=== PATIENT | male | born 1945 | race Caucasian/White ===

== ENCOUNTER 2021-04-25 22:15 | Emergency (ER) | payer MEDICARE, OTHER ==
[2021-04-25] MEDS ORDERED: methylPREDNISolone Sodium Succinate 125 MG/2 ML SDV IM ONE (22:40)
--- NOTE | 2021-04-25 22:57 | EDM.PDOC ---
ED HPI GENERAL MEDICAL PROBLEM - General Chief Complaint: Allergic Reaction Stated Complaint: BEE STING Time Seen by Provider: 04/25/21 22:36 Source of Information: Reports: Patient History Limitations: Reports: No Limitations - History of Present Illness INITIAL COMMENTS - FREE TEXT/NARRATIVE: Thong is a 75-year-old male presenting to the ED for evaluation of a bee sting to his right lateral wrist. The patient was stung about 2 hours ago. He has a history of bee sting allergies so he administered his EpiPen. He did take diphenhydramine 50 mg by mouth after the swelling started to get worse. He does state that he feels a little short of breath but denies any difficulty with swallowing. He initially was not going to come in but then he read on his EpiPen that once it is used he should seek medical attention. Does sound like what occurred as he was stung by a yellow jacket while he was taking garbage out to the garbage can this evening. Right Middle Arm Pain Score (Numeric/FACES): 4 - Related Data Allergies Allergy/AdvReac Type Severity Reaction Status Date / Time bee venom protein (honey bee) Allergy Anaphylactic Verified 04/25/21 22:32 Shock Home Meds: Home Meds EPINEPHrine [Epipen] 0.3 mg IM ASDIRECTED PRN #1 pen 04/25/21 [Rx] EPINEPHrine [Epipen] 1 dose IM ASDIRECTED 04/25/21 [History] Omeprazole 20 mg PO DAILY 04/25/21 [History] Pravastatin [Pravachol] 20 mg PO DAILY 04/25/21 [History] lisinopriL [Lisinopril] 20 mg PO DAILY 04/25/21 [History] Past Medical History HEENT History: Reports: Impaired Vision Cardiovascular History: Reports: High Cholesterol, Hypertension Gastrointestinal History: Reports: GERD Musculoskeletal History: Reports: Arthritis - Infectious Disease History Infectious Disease History: Reports: Chicken Pox, Measles, Mumps - Past Surgical History GI Surgical History: Reports: Colonoscopy, Polypectomy Social & Family History - Tobacco Use Tobacco Use Status *Q: Never Tobacco User - Caffeine Use Caffeine Use: Reports: Coffee - Alcohol Use Days Per Week of Alcohol Use: 7 Number of Drinks Per Day: 2 Total Drinks Per Week: 14 - Recreational Drug Use Recreational Drug Use: No ED ROS ALLERGIC REACTION - Review of Systems Review Of Systems: See Below Constitutional: Reports: No Symptoms HEENT: Reports: No Symptoms Respiratory: Reports: Shortness of Breath (Mild) Cardiovascular: Reports: No Symptoms Endocrine: Reports: No Symptoms GI/Abdominal: Reports: No Symptoms : Reports: No Symptoms Musculoskeletal: Reports: No Symptoms Skin: Reports: Erythema (Swelling and erythema on the lateral right wrist extending up about nursing home on the forearm) Neurological: Reports: No Symptoms. Denies: Numbness, Paresthesia, Tingling, Weakness Psychiatric: Reports: No Symptoms Hematologic/Lymphatic: Reports: No Symptoms Immunologic: Reports: No Symptoms ED EXAM GENERAL NO PERIP PULSE - Physical Exam Exam: See Below Exam Limited By: No Limitations General Appearance: Alert, No Apparent Distress, Anxious Eye Exam: Bilateral Eye: EOMI, PERRL Throat/Mouth: Normal Inspection, Normal Oropharynx, Normal Voice, No Airway Compromise Head: Atraumatic, Normocephalic Neck: Normal Inspection, Supple Respiratory/Chest: No Respiratory Distress, Lungs Clear, Normal Breath Sounds, No Accessory Muscle Use Cardiovascular: Normal Peripheral Pulses, Regular Rate, Rhythm, No Murmur Extremities: Normal Range of Motion, Normal Capillary Refill Neurological: Alert, Oriented, Normal Cognition, No Motor/Sensory Deficits Skin Exam: Erythema (Redness and swelling on the lateral right wrist extending about nursing home up the forearm.) Lymphatic: No Adenopathy Course - Vital Signs Last Recorded V/S: Last Vital Signs Temp 36.1 C 04/25/21 22:38 Pulse 93 04/25/21 22:38 Resp 16 04/25/21 22:38 BP 158/85 H 04/25/21 22:38 Pulse Ox 97 04/25/21 22:38 - Orders/Labs/Meds Meds: Medications Discontinued Medications Generic Name Dose Route Start Last Admin Trade Name Freq PRN Reason Stop Dose Admin Methylprednisolone Sodium Succinate 125 mg 04/25/21 22:40 04/25/21 22:47 Methylprednisolone Sodium Succinate 125 Mg/2 Ml Sdv IM 04/25/21 22:41 125 mg ONETIME ONE Administration Departure - Departure Time of Disposition: 23:11 Disposition: Home, Self-Care 01 Clinical Impression: Bee sting reaction Qualifiers: Encounter type: initial encounter Injury intent: accidental or unintentional Qualified Code(s): T63.441A - Toxic effect of venom of bees, accidental (unintentional), initial encounter - Discharge Information Instructions: Bee, Wasp, or Hornet Sting, Adult Referrals: PCP,None [Primary Care Provider] - Forms: ED Department Discharge Care Plan Goals: Continue to take Benadryl as needed. I have a new prescription for refill of your EpiPen. Feel free to contact us if you have any questions. Sepsis Event Note (ED) - Evaluation Sepsis Screening Result: No Definite Risk - Focused Exam Vital Signs: Vital Signs Temp Pulse Resp BP Pulse Ox 04/25/21 22:38 36.1 C 93 16 158/85 H 97 - Problem List & Annotations (1) Bee sting reaction SNOMED Code(s): 664964475, 762116590, 101373647 Code(s): T63.441A - TOXIC EFFECT OF VENOM OF BEES, ACCIDENTAL, INIT Status: Acute Priority: Medium Current Visit: Yes Qualifiers: Encounter type: initial encounter Injury intent: accidental or unintentional Qualified Code(s): T63.441A - Toxic effect of venom of bees, accidental (unintentional), initial encounter - Problem List Review Problem List Initiated/Reviewed/Updated: Yes
== END 2021-04-25 23:18 | disposition home or self-care (01) ==
LOC: JP.ED 22:15
DX: T63.441A Toxic effect of venom of bees, accidental (unintentional), initial encounter (principal); E78.00 Pure hypercholesterolemia, unspecified; I10 Essential (primary) hypertension; K21.9 Gastro-esophageal reflux disease without esophagitis; Z91.030 Bee allergy status; Z79.899 Other long term (current) drug therapy
CPT/HCPCS: 96372; 99282; J2930

== ENCOUNTER 2021-05-03 16:48 | Emergency (ER) | payer OTHER, MEDICARE ==
[2021-05-03] MEDS ORDERED: diphenhydrAMINE 25 MG Cap PO ONE (17:10)
--- NOTE | 2021-05-03 17:16 | EDM.PDOC ---
ED HPI GENERAL MEDICAL PROBLEM - General Chief Complaint: Bite:Animal, Insect Stated Complaint: BEE STING Time Seen by Provider: 05/03/21 16:55 Source of Information: Reports: Patient, RN History Limitations: Reports: No Limitations - History of Present Illness INITIAL COMMENTS - FREE TEXT/NARRATIVE: 75 yo male with a PHx of bee sting allergy was stung in the R thumb just before arrival. He immediately injected himself with his EpiPen, but no other tx. So far he has only developed local redness. He is here with his . Onset: Today, Sudden Onset Date: 05/03/21 Duration: Minutes: Location: Reports: Upper Extremity, Right Quality: Reports: Dull Severity: Mild Improves with: Reports: Other (time) Worsens with: Reports: None Context: Reports: Other (bee sting) Associated Symptoms: Reports: Other (local redness) Treatments CONTINUOUS IMPROVEMENT CONSULTANT: Reports: Other (see below) (epi subcut) - Related Data Allergies Allergy/AdvReac Type Severity Reaction Status Date / Time bee venom protein (honey bee) Allergy Anaphylactic Verified 05/03/21 16:56 Shock Home Meds: Home Meds EPINEPHrine [Epipen] 0.3 mg IM ASDIRECTED PRN #1 pen 04/25/21 [Rx] EPINEPHrine [Epipen] 1 dose IM ASDIRECTED 04/25/21 [History] Omeprazole 20 mg PO DAILY 04/25/21 [History] Pravastatin [Pravachol] 20 mg PO DAILY 04/25/21 [History] lisinopriL [Lisinopril] 20 mg PO DAILY 04/25/21 [History] Past Medical History HEENT History: Reports: Impaired Vision Cardiovascular History: Reports: High Cholesterol, Hypertension Gastrointestinal History: Reports: GERD Musculoskeletal History: Reports: Arthritis - Infectious Disease History Infectious Disease History: Reports: Chicken Pox, Measles, Mumps - Past Surgical History GI Surgical History: Reports: Colonoscopy, Polypectomy Social & Family History - Tobacco Use Tobacco Use Status *Q: Never Tobacco User - Caffeine Use Caffeine Use: Reports: Coffee ED ROS GENERAL - Review of Systems Review Of Systems: See Below Constitutional: Reports: No Symptoms HEENT: Reports: No Symptoms Respiratory: Reports: No Symptoms. Denies: Shortness of Breath, Wheezing Cardiovascular: Reports: No Symptoms Endocrine: Reports: No Symptoms GI/Abdominal: Reports: No Symptoms. Denies: Diarrhea, Nausea, Vomiting : Reports: No Symptoms Musculoskeletal: Reports: No Symptoms Skin: Reports: Erythema (at site of sting). Denies: Rash Neurological: Reports: No Symptoms ED EXAM, ANIMAL BITE - Physical Exam Exam: See Below Exam Limited By: No Limitations General Appearance: Alert, WD/WN, No Apparent Distress, Anxious Eye Exam: Bilateral Eye: Normal Inspection Ears: Normal External Exam, Normal Canal, Hearing Grossly Normal Nose: Normal Inspection, No Blood Throat/Mouth: Normal Inspection, Normal Lips, Normal Oropharynx, Normal Voice, No Airway Compromise Head: Atraumatic, Normocephalic Neck: Normal Inspection Respiratory/Chest: No Respiratory Distress, Lungs Clear, Normal Breath Sounds, No Accessory Muscle Use. No: Wheezing Cardiovascular: Regular Rate, Rhythm, No Edema. No: Tachycardia Extremities: Normal Inspection Neurological: Alert, Oriented, CN II-XII Intact, Normal Cognition, No Motor/Sensory Deficits Psychiatric: Anxious Skin Exam: Warm/Dry, Other (redness to the prox R thumb only) Course - Vital Signs Last Recorded V/S: Last Vital Signs Temp 36.7 C 05/03/21 16:55 Pulse 89 05/03/21 16:55 Resp 18 05/03/21 16:55 BP 160/99 H 05/03/21 16:55 Pulse Ox 96 05/03/21 16:55 - Orders/Labs/Meds Meds: Medications Discontinued Medications Generic Name Dose Route Start Last Admin Trade Name Freq PRN Reason Stop Dose Admin Diphenhydramine HCl 50 mg 05/03/21 17:10 05/03/21 17:15 Diphenhydramine 25 Mg Cap PO 05/03/21 17:11 50 mg ONETIME ONE Administration - Re-Assessments/Exams Free Text/Narrative Re-Assessment/Exam: 05/03/21 17:38 No sign of anaphylaxis after a period of observation. Departure - Departure Time of Disposition: 17:38 Disposition: Home, Self-Care 01 Condition: Good Clinical Impression: Bee sting Qualifiers: Encounter type: initial encounter Injury intent: accidental or unintentional Qualified Code(s): T63.441A - Toxic effect of venom of bees, accidental (unintentional), initial encounter - Discharge Information *PRESCRIPTION DRUG MONITORING PROGRAM REVIEWED*: Not Applicable *COPY OF PRESCRIPTION DRUG MONITORING REPORT IN PATIENT JESSICA: Not Applicable Instructions: Bee, Wasp, or Hornet Sting, Adult Referrals: PCP,None [Primary Care Provider] - Forms: ED Department Discharge Additional Instructions: Take diphenhydramine 50 mg every 4-6 hrs until all your itching/redness subsides. Ice and elevation may also benefit. In the future if stung take diphenhydramine 75 mg immediately and use your Epi Pen if signs of anaphylaxis occurs. For any sign of anaphylaxis you should be seen in an ER as well. Sepsis Event Note (ED) - Evaluation Sepsis Screening Result: No Definite Risk - Focused Exam Vital Signs: Vital Signs Temp Pulse Resp BP Pulse Ox 05/03/21 16:55 36.7 C 89 18 160/99 H 96
== END 2021-05-03 17:50 | disposition home or self-care (01) ==
LOC: JP.ED 16:48
DX: T63.441A Toxic effect of venom of bees, accidental (unintentional), initial encounter (principal); E78.00 Pure hypercholesterolemia, unspecified; I10 Essential (primary) hypertension; K21.9 Gastro-esophageal reflux disease without esophagitis; Z91.030 Bee allergy status; Z79.899 Other long term (current) drug therapy
CPT/HCPCS: 99282; A9270